=== PATIENT | female | born 1980 | race Caucasian/White ===

== ENCOUNTER → 2020-04-01 | Outpatient (CLI) | payer BC ==
--- NOTE | 2020-04-02 10:08 | Diagnostic Imaging Report ---
INDICATION: Routine screening. No prior mammograms are available for comparison. This is a baseline study. 2-D and 3-D screening mammography was performed with CAD. Scattered fibroglandular densities are identified bilaterally. No mass or malignant appearing microcalcifications are identified. Axillae are unremarkable. IMPRESSION: BI-RADS Category 1 No mammographic features suspicious for malignancy are identified. ACR BI-RADS Category 1: Negative. Result letter will be mailed to the patient. Note: At least 10% of breast cancer is not imaged by mammography. Dictated by: Dictated on workstation # [id number]
== END ==
LOC: RAD 15:00
PROVIDERS: ATTEND Family Medicine
DX: Z12.31 Encounter for screening mammogram for malignant neoplasm of breast (principal)
CPT/HCPCS: 77063; 77067

== ENCOUNTER → 2022-08-20 | Outpatient (CLI) | payer SELFPAY ==
--- NOTE | 2022-08-20 16:05 | Diagnostic Imaging Report ---
INDICATION: Family history of heart disease, coronary screening. TECHNIQUE: CT cardiac calcium scoring study performed with noncontrast images of the heart followed by calculation of cardiac score. Dose-reduction protocol was used. FINDINGS: The visualized portions of the lung pritchett show no focal abnormality, the entirety of the lung pritchett are not included on the study. There was no mediastinal adenopathy. There are coronary calcifications in the right coronary territory. No significant calcifications are visualized in the remaining territories. The calcification in the right coronary artery corresponded to a calcium score of 70.4. Score was 0 in the left main, LAD, and left circumflex territories. IMPRESSION: Cardiac calcium score was 70.4, with the entirety of the calcium in the right coronary artery territory. The finding is compatible with overall mild plaque burden. Dictated by: Dictated on workstation # [id number]
== END ==
LOC: RAD 14:15
PROVIDERS: ATTEND Family Medicine
DX: Z13.6 Encounter for screening for cardiovascular disorders (principal)
CPT/HCPCS: 75571